=== PATIENT | female | born 1970 | race Caucasian/White ===

== ENCOUNTER 2023-08-03 14:14 | Outpatient (REF) | payer OTHER, SELFPAY ==
[2023-08-04 21:53] LABS: Lyme Abs Screen <0.90 index
[2023-08-09 19:03] LABS: Acetylcholine Recept. Blocking <15 (<15)
[2023-08-11 00:03] LABS: Acetylcholine Receptor Binding <0.30 nmol/L
[2023-08-13 17:28] LABS: Acetylcholine Recep Modulating 5
== END 2023-08-03 14:15 | disposition home or self-care (01) ==
LOC: HO.LAB 14:14
PROVIDERS: PCP Family Medicine; Visit Provider Psychiatry & Neurology Neurology
DX: H53.2 Diplopia (principal)
CPT/HCPCS: 36415; 83519; 86617; 86618

== ENCOUNTER 2025-06-13 13:45 | Outpatient (AMB) | payer OTHER, SELFPAY ==
--- NOTE | 2025-06-13 13:48 | A.OFFVIS_ITS ---
Intake Visit Reasons: trouble walking , sooner appt HPI Comments Details: 55 yo RH woman with family h/o cerebellar ataxia (her father), her CT and MRI of brain did not reveal any significant brain pathology, was seen for dizziness and headaches, probably from migraine and migraine equivalent syndrome causing dizziness. She also suffered from anxiety disorder. Physical Exam Neuro Other: Mental Status: Alert and oriented to person, place, and time. Normal attention. Normal spontaneous speech, fluency, and comprehension. No obvious issues with mood and memory. Affect is appropriate. Cranial Nerves: CN II: Visual hinton full to confrontation, visual acuity intact. CN III, IV, : Pupils equal, round, reactive to light and accommodation. Extraocular movements are normal. CN V: Facial sensation is normal. CN VII: Facial movements symmetrical. CN VIII: Hearing intact to bedside conversation is normal. CN IX, X: Palate elevates symmetrically. CN XI: Shoulder shrug and head turn symmetrical. CN XII: Tongue midline without atrophy or fasciculations. Extrapyramidal: Full facial expressions and blinking. No rigidity. Movements are appropriate with no tremor or abnormality. Speech: Normal; no dysarthria or tremor. Assessment & Plan Assessment & Plan (1) Chronic migraine w/o aura w/o status migrainosus, not intractable: Comment: CTA brain and neck at [facility] in Jan 2025: No stenosis, 4.[address] brain WO at [facility] in Jan 2025: [place] MRI brain WWO at [place] in Jun 2023: [place] ACh ABs at [facility] in 2022: WNL Code(s): G43.709 - Chronic migraine without aura, not intractable, without status migrainosus Category: Medical (2) Migraine equivalent syndrome: Code(s): G43.109 - Migraine with aura, not intractable, without status migrainosus Category: Medical (3) Anxiety disorder: Code(s): F41.9 - Anxiety disorder, unspecified Category: Medical (4) Functional gait disorder with tremor: Code(s): R26.9 - Unspecified abnormalities of gait and mobility; R25.1 - Tremor, unspecified Category: Medical Plan Impression: a: Migraine b: Anxiety c: Gait disorder with no focal finding on exam, normal brain scans Rec: a: Topiramate 25mg, 1/2 a day, which is helping b: PT/OT eval c: MRI C spine and T spine to r/o any pathology that could explain her gait or loss of balance d: EMG/NCS to r/o neuropathy Orders: Orders NE nerve conduction velocity Today R25.1 - Tremor, unspecified, R26.9 - Unspecified abnormalities of gait and mobility NE electromyogram (EMG) Today R25.1 - Tremor, unspecified, R26.9 - Unspecified abnormalities of gait and mobility MR cervical spine wo con Today R25.1 - Tremor, unspecified, R26.9 - Unspecified abnormalities of gait and mobility MR thoracic spine wo con Today R25.1 - Tremor, unspecified, R26.9 - Unspecified abnormalities of gait and mobility Coding Level of Care Code Tele Est Pt Level 4 (52491) Diagnoses Chronic migraine w/o aura w/o status migrainosus, not intractable G43.709 Migraine equivalent syndrome G43.109 Anxiety disorder F41.9 Functional gait disorder with tremor R26.9; R25.1
--- OUTSIDE RECORDS SUMMARY | 2025-06-13 13:54 | XMS_ITS | Clinical Summary ---
Author Organization [facility] [address] [facility] Address [address] [place] [address] Phone Care Team Providers Care Patent Prosecution Attorney Name Role Phone Karime Zeng MD Primary Care Provider Allergies No known active allergies Medications DIMENHYDRINATE ORAL Take by mouth. Active Bacillus coagulans-inuli n 1 billion-250 cell-mg capsule Take by mouth. Active B complex tablet Take by mouth 1 (one) time each day. Active topiramate (TOPAMAX) 25 mg tablet Take 12.5 mg by mouth 2 (two) times a day. Patient takes one tablet 12.5 mg a day 11/07/2024 Active Active Problems Problem Noted Date Diagnosed Date Aneurysm of ascending aorta without rupture ([facility] V24) 04/02/2025 COVID-19 05/11/2022 Overview (10/02/2024): Patient reports COVID positive PCR test [facility] 05/07/22 Dizziness 11/19/2020 Vertigo 11/18/2020 Hearing loss of left ear 11/18/2020 Urinary incontinence 07/09/2020 Migraine 07/09/2020 Cervical spinal stenosis 07/09/2020 Allergic rhinitis 07/09/2020 Encounters Date Type Department Care Team Description 04/24/2025 Telephone Adult Medicine - [place] [address] [place] [address] Karime Zeng MD Referral (Abdominal aortic aneurysm/) 04/19/2025 8:00 AM EDT Ancillary Procedure [facility] - [address] [place] [id number] Palpitations 04/17/2025 Telephone Adult [address] [phone] Karime Zeng MD Referral (Cardiac Surgery Referral) 04/16/2025 8:36 AM EDT - 04/16/2025 11:59 PM EDT Hospital Encounter Radiology Department - [address] [address] Encounter for screening mammogram for breast cancer Discharge Disposition: Home or Self Care 04/02/2025 7:30 AM EDT Office Visit Adult [address] [phone] Connor Coppola PA Palpitations (Primary Dx); Stress; Aneurysm of ascending aorta without rupture (CMS/HCC V24); NSVT (nonsustained ventricular tachycardia) (CMS/HCC V24, CMS/HCC V28) 04/02/2025 Telephone Adult [address] [phone] Connor Coppola PA Forms/questionnaires 03/26/2025 Telephone Adult [address] [phone] Karime Zeng MD Rapid Heart Rate; Shortness of Breath 03/25/2025 Telephone Adult [address] [address] Chandrika SultanaDOU[place], [place] 03/20/2025 11:00 AM EDT Office Visit [address] [phone] Chilo Verdugo MD Aneurysm of ascending aorta without rupture (CMS/HCC V24) (Primary Dx); Dizziness; Chronic migraine with aura without status migrainosus, not intractable from Last 3 Months Immunizations Name Administration Dates Next Due Influenza Quadravalent, MDCK , 0.5ml, preservative free (Flucelvax) 6mo and older 07/25/2023 Influenza Quadrivalent, 0.5m l, preservative free (Fluarix; FluLaval; Fluzone) ages 6mo and older (Afluria) 3yo and older 08/12/2020,11/03/2019 Influenza trivalent, 0.5mL, preservative free (Fluarix; FluLaval; Fluzone) ages 6mo and older (Afluria) 3 years and older 07/09/2024,08/12/2020,11/03/2019 Influenza, Unspecified 10/26/2020 Tdap Tetanus diptheria acell ular pertussis (Boostrix; Adacel) 7yo and older 11/18/2020 Surgical History Surgery Date Site/Laterality Comments OTHER SURGICAL HISTORY PROCEDURE: VA VAGINAL HYSTERECTOMY UTERUS > 250 GM HYSTERECTOMY Medical History Medical History Date Comments Allergic rhinitis 07/09/2020 DX:Allergic rh initis Urinary incontinence 07/09/2020 DX:Urinary incontinence Migraine 07/09/2020 DX:Migraine Cervical spinal stenosis 07/09/2020 DX:Cerv ical spinal stenosis Family History Medical History Relation Name Comments Diabetes Mother Lung cancer Mother Relation Name Status Comments Mother Social History Tobacco Use Types Packs/Day Years Used Date Smoking Tobacco: Never Smokeless Tobacco: Never Tobacco Cessation:Counseling Given: Not Answered Alcohol Use Standard Drinks/Week Comments Not Currently 0 (1 standard drink = 0.6 oz pur e alcohol) Housing Instability Answer Date Recorde d Are you worried that in the next 2 months you may not have stable housing? No 01/08/2025 Food Access & Nutrition Answer Date Rec orded Do you have access to a vari ety of food including fruits and vegetables? Yes 01/08/2025 Access to Healthcare Answer Date Record ed Within the last 3 months, ho w many times did you visit the emergency department for your medical care? 1 01/08/2025 Health Literacy Answer Date Recorded How often do you need to hav e someone help you when you read instructions, pamphlets, or other written material from your doctor or pharmacy? Never 01/08/2025 Caregiver: How often do you need to have someone help you when you read instructions, pamphlets, or other written material from your doctor or pharmacy? Not on file 01/08/2025 Financial Risk Answer Date Recorded How hard is it for you to pa y for the very basics like food, housing, medical care, and air conditioning / heating? Not very hard 01/08/2025 Transportation Answer Date Recorded Has the lack of transportati on kept you from meetings, work, or from getting things needed for daily living? No Has the lack of transportati on kept you from medical appointments or from getting medications? No 01/08/2025 Social Isolation Answer Date Recorded How often do you feel lonely or isolated from th ose around you? Never 01/08/2025 Food Risk Answer Date Recorded Within the past 12 months we worried whether our food would run out before we got money to buy more. Never true 01/08/2025 Within the past 12 months th e food we bought just didn't last and we didn't have money to get more. Never true 01/08/2025 Dependent Care Answer Date Recorded Do you need help finding or paying for care for your loved ones. For example, director maternal child or elderly care for an older adult? No 01/08/2025 Education Answer Date Recorded Do you think completing more education or training, like finishing a GED, going to college, or learning a trade, would be helpful for you? No 01/08/2025 Employment and Income Answer Date Recor ded During the last four weeks, have you been actively looking for work? No 01/08/2025 Living Situation Answer Date Recorded What is your living situation? 0 01/08/2025 Comments No Sex and Gender Information Value Date Recorded Sex Assigned at Not on file Legal Sex Female 5:49 PM EST Gender Identity Not on file Sexual Orientation Not on file Obstetrics History Para Term AB IAB SAB Ectopic Multiple Livin g Live Births 3 3 3 3 Date Outcome GA Total Labor Labor/2nd/3rd Weight Sex Type Anes PTL Jaylene A1 A5 Name Clin Term Term Term Last Filed Vital Signs Vital Sign Reading Time Taken Comments Blood Pressure 116/72 04/02/2025 7:36 AM EDT Pulse 72 04/02/2025 7:36 AM EDT Temperature 36.1 C (96.9 F) 04/02/2025 7:36 AM EDT Respiratory Rate 16 04/02/2025 7:36 AM EDT Oxygen Saturation - - Inhaled Oxygen Concentration - - Weight 97.1 kg (214 lb) 04/02/2025 7:36 AM EDT Height 166 cm (5' 5.35 ) 04/02/2025 7:36 AM EDT Body Mass Index 35.23 04/02/2025 7:36 AM EDT Plan of Treatment Upcoming Encounters Date Type Department Care Team (Late st Contact Info) Description 08/05/2025 8:30 AM EDT Office Visit Adult Medicine - [place] [facility] [address] [place] [address] Connor Coppola PA [address] [place] [address] 08/16/2025 9:00 AM EDT Ancillary Procedure [facility] - [facility] [address] [facility] [address] [place] [phone] Health Maintenance Due Date Last Done Comments Hepatitis B Vaccines (1 of 3 - 19+ 3-dose series) 1990 Pneumococcal Vaccine: 50+ Years (1 of 1 - PCV) 2021 Zoster Vaccines (1 of 2) 2021 HIV Screening 09/25/2022 COVID-19 Vaccine ( - season) 2024 11/05/2021, 03/17/2021, 02/17/2021 Depression Screening 10/24/2024 2024 Influenza Vaccine (#1) 2025 , 07/25/2023, 10/26/2020, Additional history exists Social Influencers of Health Screening 01/08/2026 01/08/2025 Cervical Cancer Screening: Pap Smear 01/04/2027 2024 Breast Cancer Screening 04/16/2027 04/16/20 25, 04/03/2024, 04/03/2024, Additional history exists Colorectal Cancer Screening: Colonoscopy 04/09/2029 04/09/2024 Cholesterol Screening (Lipid Panel) 01/09/2030 01/09/2025, 2024 DTaP,Tdap,and Td Vaccines (2 - Td or Tdap) 11/18/2030 11/18/2020 Hepatitis C Screening Completed 2024 HIB Vaccines Aged Out No longer eligi ble based on patient's age to complete this topic HPV Vaccines Aged Out No longer eligi ble based on patient's age to complete this topic Hepatitis A Vaccines Aged Out No long er eligible based on patient's age to complete this topic IPV Vaccines Aged Out No longer eligi ble based on patient's age to complete this topic MMR Vaccines Aged Out No longer eligi ble based on patient's age to complete this topic Meningococcal ACWY Vaccine Aged Out N o longer eligible based on patient's age to complete this topic Meningococcal B Vaccine Aged Out No l onger eligible based on patient's age to complete this topic RSV Immunization Patients Under 20 months Aged Out No longer eligible based on patient's age to complete this topic Varicella Vaccines Aged Out No longer eligible based on patient's age to complete this topic Procedures Procedure Name Priority Date/Time Associated Diagnosis Comments CARDIAC HOLTER MONITOR (REPORT GENERATED IN HOUSE) Routine 04/19/2025 7:56 AM EDT Palpitations MG MAMMO DIGITAL SCREENING W HARPAL BILAT Routine 04/16/2025 8:49 AM EDT Encounter for screening mammogram for breast cancer LIPID PANEL WITH REFLEX TO DIRECT LDL Routine 01/09/2025 10:54 AM EDT Adult general medical examination COLONOSCOPY Routine 04/09/2024 DEPRESSION SCREENING Routine 2024 HEPATITIS C SCREENING Routine 2024 PAP SMEAR Routine 2024 from Last 3 Months or Most Recently Relevant to Health Maintenance Results * CARDIAC HOLTER MONITOR (REPORT GENERATED IN HOUSE) (04/19/2025 7:56 AM EDT) Anatomical Region Laterality Modality Cardiac Diagnost ic Narrative 05/02/2025 10:[address] [facility]PARTMENT [address] [place] [address], [id number], [place] [address] TEL: FAX: Type of Test: 48 Hour Holter Monitor Date of Test: 04/19/2025 Ordering Provider: ELISABETH Joya Reason for Test: Palpitations [employer] Findings: 1: Normal Sinus Rhythm. 2: Rare PACs and atrial pairs. 3: Rare PVCs, couplets, and one 8-beat run of nonsustained VT with heart rate up to 197 bpm. 4: No significant pause noted, longest R-R was 1.2 seconds at 10:28 PM. 5: Diary returned with symptoms of lightheadedness and dizziness noted. EKG at those times showed Normal Sinus Rhythm, a few brief episodes of Sinus Tachycardia with rates of 66-105 bpm. An episode of dizziness was reported while the patient was cooking dinner which showed the 8-beat run of Nonsustained VT and two isolated couplets with heart rate range of 92-197 bpm. Impression: The baseline rhythm was sinus rhythm. There was an 8 beat run of a wide-complex tachycardia consistent with ventricular tachycardia at 197 bpm. This episode was symptomatic with lightheadedness. There were other episodes of dizziness without symptoms. Otherwise there was very little atrial or ventricular ectopy us Connor BARBER [facility] PROCEDURE S Final Result * MG Mammo Digital Screening w Harpal bilat (04/16/2025 8:49 AM EDT) Anatomical Region Laterality Modality Breast Bilateral Mammography 04/16/2025 5:34 PM EDT Impressions 04/16/2025 5:35 PM EDT No mammographic evidence of malignancy. BREAST DENSITY: C - The breasts are heterogeneously dense which may obscure small masses. BI-RADS CATEGORY: 1 - NEGATIVE RECOMMENDATION: Screening bilateral mammogram is recommended in 1 year. MAMMO LOCATION: [facility], [address] [place] [address], [address], . -------- FINAL REPORT -------- Dictated By: Hilary Sweeney Dictated Date: 04/16/2025 17:34 ET Assigned Physician: Hilary Sweeney Reviewed and Electronically Signed By: Hilary Sweeney Signed Date: 04/16/2025 17:35 ET Workstation ID: [id number] Transcribed By: Self Edit Transcribed Date: 04/16/2025 17:34 ET Narrative 04/16/2025 5:35 PM EDT EXAM: Screening Mammogram CLINICAL: 55 years old, Female, routine annual exam. COMPARISON: 04/03/2024 and 04/27/2022 TECHNIQUE: Bilateral MLO and CC views were obtained digitally with 3-D mammogram (digital breast tomosynthesis). Computer-aided detection was utilized in evaluation of this exam (CAD). FINDINGS: No new suspicious mass, architectural distortion, or suspicious calcifications. Procedure Note Hilary Sweeney MD - 04/16/2025 EXAM: Screening Mammogram CLINICAL: 55 years old, Female, routine annual exam. COMPARISON: 04/03/2024 and 04/27/2022 TECHNIQUE: Bilateral MLO and CC views were obtained digitally with 3-Dmammogram (digital breast tomosynthesis). Computer-aided detection wasutilized in evaluation of this exam (CAD). FINDINGS: No new suspicious mass, architectural distortion, or suspiciouscalcifications. IMPRESSION: No mammographic evidence of malignancy. BREAST DENSITY: C - The breasts are heterogeneously dense which mayobscure small masses. BI-RADS CATEGORY: 1 - NEGATIVE RECOMMENDATION: Screening bilateral mammogram is recommended in 1 year. MAMMO LOCATION: [facility], [address] [place] [address], [facility], . -------- FINAL REPORT -------- Dictated By: Hilary Sweeney Dictated Date: 04/16/2025 17:34 ET Assigned Physician: Hilary Sweeney Reviewed and Electronically Signed By: Hilary Sweeney Signed Date: 04/16/2025 17:35 ET Workstation ID: [id number] Transcribed By: Self Edit Transcribed Date: 04/16/2025 17:34 ET us Karime Zeng MD IMG BI PROCEDURES Moira l Result * (ABNORMAL) Lipid panel with reflex to direct LDL (01/09/2025 10:54 AM EDT) Pathologist [facility] Cholesterol 202(H) 0 - 200 mg/dL LAB CHEMISTRY METHOD 01/09/2025 4:16 PM EDT [facility] Triglycerides 124 0 - 150 mg/dL LAB CHEMISTRY METHOD 01/09/2025 4:16 PM EDT [facility] HDL 63 >=40 mg/dL LAB CHEMISTRY METHOD 01/09/2025 4:16 PM EDT [facility] LDL Calculated 114(H) 0 - 100 mg/dL LAB CHEMISTRY METHOD 01/09/2025 4:16 PM EDT [facility] VLDL Cholesterol Shiva 24.8 mg/dL LAB CHEMISTRY METHOD 01/09/2025 4:16 PM EDT [facility] Non HDL Chol. (LDL+VLDL) 139 <145 mg/dL LAB CHEMISTRY METHOD 01/09/2025 4:16 PM EDT [facility] Chol/HDL Ratio 3.2 0.0 - 4.4 LAB CHEMISTRY METHOD 01/09/2025 4:16 PM EDT [facility] Blood Venous blood specimen / Unknown Venipuncture / Unknown 01/09/2025 10:54 AM EDT 01/09/2025 10:54 AM EDT Connor BARBER LAB BLOOD ORDERABLES Final Re sult [facility] [address] [place] [address], * Colonoscopy (04/09/2024) Pathologist [facility] Colonoscopy No interpretation , abstracted Anatomical Region Laterality Modality Other us Historical Provider HEALTH MAINTENANCE Final Result * Depression Screening (2024) Pathologist [facility] Depression Screening abstracted us Historical Provider HEALTH MAINTENANCE Final Result * Hepatitis C Screening (2024) Hepatitis C Screening abstracted us Historical Provider HEALTH MAINTENANCE Final Result * Pap Smear (2024) Pap smear No interpretation , abstracted us Historical Provider HEALTH MAINTENANCE Final Result from Last 3 Months or Most Recently Relevant to Health Maintenance Insurance [facility] [employer] Care Teams Patent Prosecution Attorney Relationship Specialty Start Date End Date Karime Zeng MD [address] [place] [id number] PCP - General Internal Medicine 12/07/21
== END 2025-06-13 14:05 | disposition home or self-care (01) ==
LOC: HO.HSM 13:45
PROVIDERS: PCP Family Medicine; Visit Provider Psychiatry & Neurology Neurology
DX: G43.709 Chronic migraine without aura, not intractable, without status migrainosus (principal); G43.109 Migraine with aura, not intractable, without status migrainosus; F41.9 Anxiety disorder, unspecified; R26.9 Unspecified abnormalities of gait and mobility; R25.1 Tremor, unspecified
CPT/HCPCS: 99214

== ENCOUNTER 2025-06-19 12:42 | Outpatient (REF) | payer OTHER, SELFPAY ==
--- NOTE | 2025-06-19 13:01 | EMG_ITS ---
Chief complaint- gait abnormalities, dizziness Reason for referral- gait abnormalities Referred by- Dr Seth Procedure done: Nerve conduction study preformed bilateral lower extremities. EMG was preformed lower extremities. Bilateral tibial and peroneal motor studies were performed. Bilateral sural and superficial peroneal sensory studies were performed tibial H reflexes were performed an EMG needle examination was performed. 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
--- OUTSIDE RECORDS SUMMARY | 2025-06-19 13:06 | XMS_ITS | Clinical Summary ---
Author Organization [facility] [address] [facility] Address [address] [place] [address] Phone Care Team Providers Care Comparison Shopper Name Role Phone Karime Zeng MD Primary [...] Date Aneurysm of ascending aorta without rupture ([facility] V24) 04/02/2025 COVID-19 05/11/2022 Overview (10/02/2024): Patient reports [facility] test [facility] 05/07/22 Dizziness 11/19/2020 Vertigo 11/18/2020 Hearing loss of left ear 11/18/2020 Urinary incontinence 07/09/2020 Migraine 07/09/2020 Cervical spinal stenosis 07/09/2020 Allergic rhinitis 07/09/2020 Encounters Date Type Department Care Team Description 04/24/2025 Telephone Adult Medicine - [place] [address] [place] [address] Karime Zeng MD 04/19/2025 8:00 AM EDT Ancillary Procedure [facility] - [address] [place] [phone] Palpitations 04/17/2025 Telephone Adult Medicine [address] [address] Karime Zeng MD 04/16/2025 8:36 AM EDT - 04/16/2025 11:59 PM EDT Hospital Encounter Radiology Department - [address] [address] Encounter for screening mammogram for breast cancer Discharge Disposition: Home or Self Care 04/02/2025 7:30 AM EDT Office Visit Adult Medicine [address] [address] Connor Coppola, PA Palpitations (Primary Dx); Stress; Aneurysm of ascending aorta without rupture (CMS/HCC V24); NSVT (nonsustained ventricular tachycardia) (CMS/HCC V24, CMS/HCC V28) 04/02/2025 Telephone Adult [address] [address] Connor Coppola, PA 03/26/2025 Telephone Adult [address] [address] Karime Zeng MD 03/25/2025 Telephone Adult [address] [address] Chandrika Sultana [place] 03/20/2025 11:00 AM EDT Office Visit Adult [address] [address] Chilo Verdugo MD Aneurysm of ascending aorta [...] Date Site/Laterality Comments OTHER SURGICAL HISTORY PROCEDURE: IN VAGINAL HYSTERECTOMY UTERUS > 250 GM HYSTERECTOMY [...] care for your loved ones. For example, child welfare consultant or elderly care for an older adult? [...] AM EDT Office Visit Adult Medicine - [place] [address] [place] [address] Connor Coppola PA [address] [place] [address] 08/16/2025 9:00 AM EDT Ancillary Procedure [facility] - [facility] [address] [place] [address] Health Maintenance Due Date Last Done Comments [...] Diagnost ic Narrative 05/02/2025 10:07 AM EDT [facility] DIAGNOSTIC [facility]ING DEPARTMENT [address] [facility], [id number], [place] [address] TEL: FAX: Type of Test: 48 Hour Holter Monitor Date of Test: 04/19/2025 Ordering Provider: ELISABETH Joya Reason for Test: Palpitations [employer]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 2: Rare [...] is recommended in 1 year. MAMMO LOCATION: [facility], [address] [place] [address], [address], . -------- FINAL REPORT -------- Dictated By: Hilary Sweeney Dictated Date: 04/16/2025 17:34 ET Assigned Physician: Hilary Sweeney Reviewed and Electronically Signed By: Hilary Sweeney Signed Date: 04/16/2025 17:35 ET Workstation ID: [id number] Transcribed By: Self Edit Transcribed Date: 04/16/2025 [...] is recommended in 1 year. MAMMO LOCATION: [facility], [address] [place] [address], [address], . -------- FINAL REPORT -------- Dictated By: Hilary Sweeney Dictated Date: 04/16/2025 17:34 ET Assigned Physician: Hilary Sweeney Reviewed and Electronically Signed By: Hilary Sweeney Signed Date: 04/16/2025 17:35 ET Workstation ID: [id number] Transcribed By: Self Edit Transcribed Date: 04/16/2025 17:34 ET us Karime Zeng MD IMG BI PROCEDURES Moira l Result * (ABNORMAL) Lipid panel with reflex to direct LDL (01/09/2025 10:54 AM EDT) Cholesterol 202(H) 0 - 200 mg/dL LAB [...] Final Re sult [facility] [address] [place] [address], * Colonoscopy (04/09/2024) Pathologist [facility] Colonoscopy No interpretation , abstracted Anatomical Region Laterality Modality Other Historical Provider HEALTH MAINTENANCE Final Result * Depression Screening (2024) [facility] Depression Screening abstracted Historical Provider HEALTH MAINTENANCE Final Result * Hepatitis C Screening (2024) Pathologist [facility] Hepatitis C Screening abstracted Historical Provider HEALTH MAINTENANCE Final Result * Pap Smear (2024) Pap smear No interpretation , abstracted Historical Provider HEALTH MAINTENANCE Final Result from Last 3 Months or Most Recently Relevant to Health Maintenance Insurance [facility] [employer] Care Teams Comparison Shopper Relationship Specialty Start Date End Date Karime Zeng MD [address] [place] [id number] PCP - General Internal Medicine 12/07/21
== END 2025-06-19 12:43 | disposition home or self-care (01) ==
LOC: HO.NEURO 12:42
PROVIDERS: PCP Family Medicine; Visit Provider Psychiatry & Neurology Neurology
DX: R26.9 Unspecified abnormalities of gait and mobility (principal); R25.1 Tremor, unspecified; R42 Dizziness and giddiness; G62.9 Polyneuropathy, unspecified
CPT/HCPCS: 95886; 95911

== ENCOUNTER → 2025-06-19 13:01 | Outpatient (BNV) | payer OTHER, SELFPAY | PROVIDERS: PCP Family Medicine; Visit Provider Psychiatry & Neurology Neurology | DX: G62.89 Other specified polyneuropathies (principal) | CPT/HCPCS: 95886; 95911 ==

== ENCOUNTER → 2025-07-03 07:08 | Outpatient (BNV) | payer OTHER, SELFPAY | PROVIDERS: PCP Family Medicine; Visit Provider Radiology Diagnostic Radiology | DX: R26.9 Unspecified abnormalities of gait and mobility (principal) | CPT/HCPCS: 72141; 72146 ==

== ENCOUNTER 2025-07-03 07:10 | Outpatient (REF) | payer OTHER, SELFPAY ==
--- NOTE | ~2025-07-03 | MR_ITS ---
EXAMINATION: MR CERVICAL SPINE WITHOUT CONTRAST CLINICAL INFORMATION: R26.9. Unspecified abnormalities of gait and mobility. COMPARISON: None available. TECHNIQUE: MRI of the cervical spine was obtained using routine sequences without contrast. FINDINGS: Craniocervical junction is intact. The cerebellar tonsils are in normal position. There is a subtle bone marrow STIR signal at the endplates of C7-T1 likely Modic type I endplate changes. Bone marrow inhomogeneity. Grade 1 retrolisthesis C4-5. Multilevel anterior and posterior marginal osteophyte formation, decreased intervertebral disc height and signal at C4-5, C5-6 and C6-7 and to a lesser extent C7-T1. Multifocal patchy hyperintense T2 STIR cor signal abnormality involving mostly the midline dorsal aspect of the cervical spinal cord from C2-3 to C6-7, the largest focal signal abnormality at C5-6. C2-3: No central spinal canal or neuroforamina stenosis. Focal hyperintense T2 STIR signal, dorsal aspect cervical spinal cord. C3-4: Broad-based disc osteophyte complex formation resulting in decreased diameter of the thecal sac. No cord compression. There is cord signal abnormality in the dorsal aspect. No neuroforamina stenosis. C4-5: Broad-based disc osteophyte complex formation resulting in flattening of the spinal cord and CSF effacement of the ventral aspect of the thecal sac. There is bilateral, right greater than the left side neuroforamina stenosis. C5-6: Broad-based disc osteophyte complex formation resulting in CSF effacement of the thecal sac and flattening of the cervical spinal cord. There is a cor signal abnormality in the dorsal aspect. Bilateral neuroforamina stenosis. C6-7: Broad-based disc osteophyte compresses formation resulting in ventral deformity of the thecal sac. Bilateral neuroforamina stenosis. There is a focal hyperintense T2 signal abnormality in the dorsal spinal cord. C7-T1: Broad-based disc osteophyte compresses formation resulting in ventral deformity of the thecal sac. Bilateral neuroforamina narrowing left greater than the right side. There is a focal punctate hyperintense T2 signal in the dorsal aspect of the cervical spinal cord. No prevertebral compartment hematoma, mass or fluid collection. Flow-void signal within the main vessels is normal. Left vertebral artery is dominant. . MR/MR cervical spine wo con IMPRESSION: Multilevel cervical spondylosis, C3-4 to C7-T1 resulting in central spinal canal stenosis at C4-5, C6-7, C4-5 and to a lesser extent C3-4 and bilateral neuroforamina stenosis pronounced at C4-5 C5-6 and to a lesser extent C6-7. Multilevel cervical spinal cord signal abnormality involving mostly the dorsal aspect of the cord from C2-3 to C6-7 pronounced at C5-6. Concerning demyelinating processes in the correct clinical settings. Alternatively myelopathy secondary to spondylosis. Electronically signed by: Diomedes Ruiz MD 07/03/2025 08:16 AM EDT
--- NOTE | ~2025-07-03 | MR_ITS ---
EXAMINATION: MR THORACIC SPINE WITHOUT CONTRAST CLINICAL INFORMATION: Unspecified abnormalities of gait and mobility. R26.9 COMPARISON: Correlated to MRI cervical spine dated July 03, 2025. TECHNIQUE: MRI of the thoracic spine was obtained using routine sequences without contrast. FINDINGS: The thoracic spinal cord caliber and signal is normal. Patchy hyperintense T2 STIR signal abnormality in the dorsal aspect of the lower cervical spinal cord at C6. No bone marrow STIR signal abnormality in the thoracic spine. Multilevel marginal osteophyte formation, decreased intervertebral disc height and signal from T3 to T10. The alignment is normal. The conus medullaris ends at inferior endplate of L1 with normal signal. T1-2: No cord compression. No disc herniation. T2-3: No disc herniation. No cord compression. T3-4: No disc herniation. No cord compression. T4-5: Broad-based disc bulging resulting in ventral deformity of the thecal sac. No cord compression. T5-6: No disc herniation. No cord compression. C6-7: Left subarticular broad-based disc herniation resulting in ventral deformity of the thecal sac. No cord compression. T7-8: No central spinal canal stenosis. T8-9: Broad-based disc bulging. No cord compression. T9-10: No cord compression. T10-11: No central spinal canal stenosis. T11-12: No central spinal canal stenosis. No prevertebral compartment hematoma, mass or fluid collection. Mild soft tissue fullness, left adrenal gland.. MR/MR thoracic spine wo con IMPRESSION: No acute fracture or listhesis. No cord compression, cord edema and or myelopathy. Multilevel spondylosis. Please refer to the MRI cervical spine. Electronically signed by: Diomedes Ruiz MD 07/03/2025 08:23 AM EDT
--- OUTSIDE RECORDS SUMMARY | 2025-07-03 07:13 | XMS_ITS | Clinical Summary ---
Author Organization [facility] [address] [facility] Address [address] [place] [address] Phone Care Team Providers Care Tea Bag Packer Name Role Phone Karime Zeng MD Primary [...] Date Aneurysm of ascending aorta without rupture ([facility] V24) 04/02/2025 COVID-19 05/11/2022 Overview (10/02/2024): Patient reports [facility] test [facility] 05/07/22 Dizziness 11/19/2020 Vertigo 11/18/2020 Hearing loss of left ear 11/18/2020 Urinary incontinence 07/09/2020 Migraine 07/09/2020 Cervical spinal stenosis 07/09/2020 Allergic rhinitis 07/09/2020 Encounters Date Type Department Care Team Description 04/24/2025 Telephone Adult Medicine - [place] [address] [place] [address] Karime Zeng MD 04/19/2025 8:00 AM EDT Ancillary Procedure [facility] - [address] [place] [address] Palpitations 04/17/2025 Telephone Adult Medicine - [place] [address] [place] [address] Karime Zeng MD 04/16/2025 8:36 AM EDT - 04/16/2025 11:59 PM EDT Hospital Encounter Radiology Department - [address] [address] Encounter for screening mammogram for breast cancer Discharge Disposition: Home or Self Care 04/02/2025 7:30 AM EDT Office Visit Adult Medicine - [place] [address] [place] [phone] Connor Coppola, PA Palpitations (Primary Dx); Stress; Aneurysm of ascending aorta without rupture (CMS/HCC V24); NSVT (nonsustained ventricular tachycardia) (CMS/HCC V24, CMS/HCC V28) 04/02/2025 Telephone Adult Medicine - [place] [address] [place] [address] Connor Coppola, PA from Last 3 Months Immunizations Name Administration [...] Date Site/Laterality Comments OTHER SURGICAL HISTORY PROCEDURE: ME VAGINAL HYSTERECTOMY UTERUS > 250 GM HYSTERECTOMY [...] care for your loved ones. For example, early childhood teacher or elderly care for an older adult? [...] AM EDT Office Visit Adult Medicine - [place] [address] [place] [address] Connor Coppola PA [address] [place] [address] 08/16/2025 9:00 AM EDT Ancillary Procedure [facility] - [place] [address] [place] [address] [address] Health Maintenance Due Date Last Done Comments Hepatitis B Vaccines (1 of 3 - 19+ 3-dose series) 1990 Pneumococcal Vaccine: 50+ Years (1 of 1 - PCV) 2021 Zoster Vaccines (1 of 2) 2021 HIV Screening 09/25/2022 Depression Screening 10/24/2024 2024 COVID-19 Vaccine (4 - 2024- season) 2025 11/05/2021, 03/17/2021, 02/17/2021 Influenza Vaccine (#1) 2025 , 07/25/2023, 10/26/2020, Additional history exists Social Influencers of Health Screening 01/08/2026 01/08/2025 Cervical Cancer Screening: Pap Smear 01/04/2027 2024 Breast Cancer Screening 04/16/2027 04/16/20, 04/03/2024, 04/03/2024, Additional history exists Colorectal Cancer [...] 10:54 AM EDT Adult general medical examination HM COLONOSCOPY Routine 04/09/2024 HM DEPRESSION SCREENING Routine 2024 HM HEPATITIS C SCREENING Routine 2024 HM PAP SMEAR Routine 2024 from Last 3 Months or Most Recently Relevant to Health Maintenance Results * CARDIAC HOLTER MONITOR (REPORT GENERATED IN HOUSE) (04/19/2025 7:56 AM EDT) Anatomical Region Laterality Modality Cardiac Diagnost ic Narrative 05/02/2025 10:07 AM EDT [facility] DI[facility]IC [facility]ING DEPARTMENT [address] [place] [address] TEL: FAX: Type of Test: 48 Hour Holter Monitor Date of Test: 04/19/2025 Ordering Provider: ELISABETH Joya Reason for Test: 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 2: Rare [...] was very little atrial or ventricular ectopy Connor BARBER [facility] PROCEDURE S [...] is recommended in 1 year. MAMMO LOCATION: [facility], [address] [place] [address], [address], . -------- FINAL REPORT -------- Dictated By: Hilary Sweeney Dictated Date: 04/16/2025 17:34 ET Assigned Physician: Hilary Sweeney Reviewed and Electronically Signed By: Hilary Sweeney Signed Date: 04/16/2025 17:35 ET Workstation ID: [id number] Transcribed By: Self Edit Transcribed Date: 04/16/2025 [...] is recommended in 1 year. MAMMO LOCATION: [facility], [address] [place] [address], [id number], . -------- FINAL REPORT -------- Dictated By: Hilary Sweeney Dictated Date: 04/16/2025 17:34 ET Assigned Physician: Hilary Sweeney Reviewed and Electronically Signed By: Hilary Sweeney Signed Date: 04/16/2025 17:35 ET Workstation ID: [id number] Transcribed By: Self Edit Transcribed Date: 04/16/2025 17:34 ET us Karime Zeng MD IMG BI PROCEDURES Moira l Result * (ABNORMAL) Lipid panel with reflex to direct LDL (01/09/2025 10:54 AM EDT) Cholesterol 202(H) 0 - 200 mg/dL LAB CHEMISTRY METHOD 01/09/2025 4:16 PM EDT [facility] Triglycerides 124 0 - 150 mg/dL LAB CHEMISTRY METHOD 01/09/2025 4:16 PM EDT [facility] HDL 63 >=40 mg/dL LAB CHEMISTRY METHOD 01/09/2025 4:16 PM EDT [facility] LDL Calculated 114(H) 0 - 100 mg/dL LAB CHEMISTRY METHOD 01/09/2025 4:16 PM EDT [facility] VLDL Cholesterol Shiva 24.8 mg/dL LAB CHEMISTRY METHOD 01/09/2025 4:16 PM EDT [facility] Non HDL Chol. (LDL+VLDL) 139 <145 mg/dL LAB CHEMISTRY METHOD 01/09/2025 4:16 PM EDT [facility] Chol/HDL Ratio 3.2 0.0 - 4.4 LAB CHEMISTRY METHOD 01/09/2025 4:16 PM EDT [facility] Blood Venous blood specimen / Unknown Venipuncture / Unknown 01/09/2025 10:54 AM EDT 01/09/2025 10:54 AM EDT Connor BARBER LAB BLOOD ORDERABLES Final Re sult [facility] [address] [place] [address], [place] [phone] * Colonoscopy (04/09/2024) Pathologist [facility] Colonoscopy No interpretation , abstracted Anatomical Region Laterality Modality Other [facility] Provider MD HEALTH MAINTENANCE Final Result * Depression Screening (2024) [facility] Depression Screening abstracted [facility] Provider MD HEALTH MAINTENANCE Final Result * Hepatitis C Screening (2024) [facility] Hepatitis C Screening abstracted [facility] Provider MD HEALTH MAINTENANCE Final Result * Pap Smear (2024) [facility] Pap smear No interpretation , abstracted [facility] Provider MD HEALTH MAINTENANCE Final Result from Last 3 Months or Most Recently Relevant to Health Maintenance Insurance [facility] [employer] Care Teams Tea Bag Packer Relationship Specialty Start Date End Date Karime Zeng MD [address] [place] [phone] PCP - General Internal Medicine 12/07/21
== END 2025-07-03 07:11 | disposition home or self-care (01) ==
LOC: HO.MRI 07:10
PROVIDERS: PCP Family Medicine; Visit Provider Psychiatry & Neurology Neurology
DX: R26.9 Unspecified abnormalities of gait and mobility (principal); R25.1 Tremor, unspecified
CPT/HCPCS: 72141; 72146